=== PATIENT | female | born 2000 | race African-American/Black ===

== ENCOUNTER 2019-04-02 20:08 | Emergency (ER) | payer OTHER ==
[~2019-04-02] VITALS: Ht 167.6 cm; Wt 54.5 kg
[2019-04-02 20:16] VITALS: TEMP 98.8
[2019-04-02 20:58] LABS: BASO % 0.3 % (0.0-2.0); EOS # 0.2 (0.0-0.7); EOS % 1.6 % (0-4.0); GRAN # 8.3 (1.4-6.5); GRAN % 72.6 % (42.2-75.2); HEMATOCRIT 40.8 % (35.0-45.0); HEMOGLOBIN 13.8 g/dl (12.0-15.0); LYMPH % 17.2 % (20.0-51.0); MEAN CELL VOLUME 91 fl (80.0-95.0); MEAN CORPUSCULAR HEMOGLOBIN 31 pg (26.0-32.0); MEAN CORPUSCULAR HGB CONC 34 g/dl (33.0-37.0); MEAN PLATELET VOLUME 9.2 fl (7.4-10.4); MONO # 0.9 (0.1-0.6); PLATELET COUNT 293 K/mm3 (130-400); RED BLOOD COUNT 4.47 M/mm3 (4.10-5.30); REDCELL DISTRIBUTION WIDTH-CV 11.9 % (11.5-14.5)
[2019-04-02 21:06] LABS: CALCIUM 9.3 mg/dL (8.4-10.2); CREATININE, serum 0.63 (0.52-1.25); POTASSIUM 3.3 mmol/L (3.4-5.0)
[2019-04-02 21:26] LABS: MONOSCREEN NEGATIVE
[2019-04-02 21:46] LABS: STREP SCREEN NEGATIVE
[2019-04-02] MEDS ORDERED: ALYACEN 1/35 351 TAB PO (22:00)
[2019-04-02 23:41] VITALS: BP 110/74; PULSE 76
== END 2019-04-02 23:21 | disposition home or self-care (01) ==
LOC: COL.ER 20:08
PROVIDERS: Physician Assistant
DX: R53.81 Other malaise (principal); R53.82 Chronic fatigue, unspecified
CPT/HCPCS: J1200; J1885; J2550; J7030

== ENCOUNTER 2021-04-02 01:48 | Emergency (ER) | payer OTHER ==
[~2021-04-02] VITALS: Ht 167.6 cm; Wt 52.7 kg
[~2021-04-02 01:48] MED LIST: ALYACEN 1/35 351 TAB PO
[2021-04-02 03:06] VITALS: TEMP 98.9
[2021-04-02 03:45] VITALS: BP 112/70; PULSE 111
== END 2021-04-02 03:45 | disposition home or self-care (01) ==
LOC: COL.ER 01:48
DX: S99.921A Unspecified injury of right foot, initial encounter (principal); W18.02XA Striking against glass with subsequent fall, initial encounter; Y92.838 Other recreation area as the place of occurrence of the external cause